=== PATIENT | female | born 1940 | race Caucasian/White ===

== ENCOUNTER 2021-01-27 14:40 | Emergency (ER) | payer MEDICARE, BC ==
[2021-01-27] MEDS ORDERED: Ondansetron 4 MG/2 ML SDV IVPUSH STA (14:45)
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
[2021-01-27] MEDS ORDERED: Pantoprazole 40 MG Vial IVPUSH ONE (15:18)
[2021-01-27] MEDS ORDERED: Pantoprazole 40 MG Vial ONE (15:25)
[2021-01-27 15:29] LABS: CHLORIDE,CL 100 mEq/L (98-106); SODIUM,NA 139 mEq/L (136-145)
[2021-01-27] MEDS ORDERED: Pantoprazole 40 MG in Sodium Chloride 0.9% 100 ML IV SCH (15:30)
[2021-01-27] MEDS ORDERED: Sodium Chloride 0.9% 250 ML IV SCH (15:30)
[2021-01-27] MEDS ORDERED: cefTRIAXone 1 GM Vial IVPUSH ONE (15:55)
[2021-01-27] MEDS ORDERED: Famotidine 20 MG/2 ML SDV IVPUSH ONE (16:43)
== END 2021-01-27 17:17 ==
LOC: CC.ED 14:40
DX: K92.2 Gastrointestinal hemorrhage, unspecified (principal); D64.9 Anemia, unspecified; N39.0 Urinary tract infection, site not specified; Z88.8 Allergy status to other drugs, medicaments and biological substances; Z79.899 Other long term (current) drug therapy; Z20.822 Contact with and (suspected) exposure to COVID-19
CPT/HCPCS: 36415; 36430; 71046; 80053; 81001; 82150; 82550; 83615; 83690; 84484; 85025; 85610; 86850; 86900; 86901; 86920; 86922; 87086; 87088; 87186; 93005; 93010; 96365; 96375; 96376; 99284; 99285-25; C9113; J0696; J2405; J3490; J7040; P9016; U0002